=== PATIENT | female | born 1980 ===

== ENCOUNTER 2023-12-04 12:50 | Outpatient (AMB) | payer OTHER, SELFPAY ==
[2023-12-04 13:11] VITALS: BMI 30.9
--- NOTE | 2023-12-04 13:11 | A.OFFVIS_ITS ---
VS Expanded 12/04/23 13:11 12/10/23 14:06 Height 5 ft 5 ft Weight 158 lb 1.143 oz 158 lb BMI 30.9 30.9 Intake Visit Reasons: Overweight/LVM Nutrition Presentation Details: Pt presents for MNT for overweight/obesity. Pt was referred by PCP, Dr. Valencia Pt has elevated cholesterol, reports working on trying to reduce portions and meal planning Typically B: coffee black green tea L 1pm shrimp and salad 2 potatoes and chicken breast, water D: wraps or salmon or salad no eating after 7 pm , reports success with this modification and now used to the routine physical activity: sedentary ETOH/SMoking: --- meds: zyrtec 10 m/gl, atarax 25 mg twice/day , melatonin 10 mg/d BS Monitoring Most Recent Diabetes Results: No Data to Display ZWB-Gwixnlu-RyLazaro Equation Height: 5 ft Weight: 158 lb Resting Metabolic Rate: 1286.06 Calculated Activity Level: Sedentary Calories Needed to Maintain Weight: 1543.27 Diagnosis Nutrition problem #1: food nutri know defi As related to (etiology) #1: diagnosis As evidenced by (sign/symptom) #1: high BMI (30.9 (12/2023)) and knowledge deficit of diet Monitoring/Goals Nutrition problem monitoring: level of knowledge/skill, total PRO intake and weight Nutrition goal/outcome: wt loss 5lbs in 2 months Outcome progress: verbalized understanding Learning/Education Readiness to learn: good Stages of change: preparation Assessment & Plan Assessment & Plan (1) Obesity (BMI 30.0-34.9): Code(s): E66.9 - Obesity, unspecified Category: Medical Plan: Wt: 72 Kg ( 12/2023 ) Est kcal needs as per MSJ: 2534-8427 (40% carb, 30% protein/fat) Est fluid needs as per 25-30 ml/d: 2200 Est prot per day as per 1 g/kg bw: 72 Recommend fiber intake : 8-10 g per day and gradually increase to 25-28 g per day for women and 35-38 g for men or as tolerated Recommend sodium intake per day : less than 2000 mg Educated patient on: ( R = reviewed V = verbalizes understanding N/R = needs review N/A = not applicable * Food sources of carbohydrate, adequate serving sizes and its role in various health conditions: R * Differences between complex carbohydrates a simple carbohydrates, role of fiber in diet: R * Lean protein sources of foods: R * Differences between types of fats and role in diet (mono on saturated fat fatty acids, saturated fatty acids, trans fats): R V N/R * Food sources of sodium in salt and healthy modifications for heart health in kidney health: R V R/V * Vitamins and minerals: R V N/R * Healthy plate method concept: R * Physical activity: Benefits a precaution: R V N/R * Patient Instructions: Practice mindful eating Work on reducing total carb to 45-60 g at meal following healthy plate method - measure food portions Keep hydrated by choosing water/herb/fruit infused water , low sugar/no sugar beverages Coding Level of Care Code Nutr Indiv Intake (76814) Diagnoses Obesity (BMI 30.0-34.9) E66.9 Time Spent (min) 30
[2023-12-10 14:06] VITALS: BMI 30.9
== END 2023-12-04 13:48 | disposition home or self-care (01) ==
PROVIDERS: PCP Student in an Organized Health Care Education/Training Program; Visit Provider Dietitian, Registered
DX: E66.9 Obesity, unspecified (principal)

== ENCOUNTER → 2023-12-04 12:50 | Outpatient (BNVA) | payer OTHER, SELFPAY | PROVIDERS: PCP Student in an Organized Health Care Education/Training Program; Visit Provider Dietitian, Registered | DX: E66.9 Obesity, unspecified (principal); E78.00 Pure hypercholesterolemia, unspecified; Z68.30 Body mass index [BMI] 30.0-30.9, adult; Z71.3 Dietary counseling and surveillance | CPT/HCPCS: 97802 ==

== ENCOUNTER 2024-01-08 12:57 | Outpatient (AMB) | payer OTHER, SELFPAY ==
[2024-01-08 13:16] VITALS: BMI 30.5
--- NOTE | 2024-01-08 13:16 | A.OFFVIS_ITS ---
VS Expanded 01/08/24 13:16 Height 5 ft Weight 156 lb 4.924 oz BMI 30.5 Intake Visit Reasons: OBESITY/ LVM Nutrition Presentation Details: Pt presents for MNT f/u for obesity Pt reports well, working on meal planning/healthier options. working on eating slowly, finds herself eating too fast BS Monitoring Most Recent Diabetes Results: No Data to Display Assessment & Plan Assessment & Plan (1) Obesity (BMI 30.0-34.9): Code(s): E66.9 - Obesity, unspecified Category: Medical Plan: Wt: 72 Kg ( 12/2023 ), 71 kg (01/2024) Est kcal needs as per MSJ: 8301-1167 (40% carb, 30% protein/fat) Est fluid needs as per 25-30 ml/d: 2200 Est prot per day as per 1 g/kg bw: 72 Recommend fiber intake : 8-10 g per day and gradually increase to 25-28 g per day for women and 35-38 g for men or as tolerated Recommend sodium intake per day : less than 2000 mg Educated patient on: ( R = reviewed V = verbalizes understanding N/R = needs review N/A = not applicable * Food sources of carbohydrate, adequate serving sizes and its role in various health conditions: R * Differences between complex carbohydrates a simple carbohydrates, role of fiber in diet: R * Lean protein sources of foods: R * Differences between types of fats and role in diet (mono on saturated fat fatty acids, saturated fatty acids, trans fats): R V N/R * Food sources of sodium in salt and healthy modifications for heart health in kidney health: R V R/V * Vitamins and minerals: R V N/R * Healthy plate method concept: R * mindful eating: R * Calories: R * Physical activity: Benefits a precaution: R V N/R * Patient Instructions: limit calories from snacks to 200 calories per day Coding Level of Care Code Nutr Indiv Subseq (31162) Diagnoses Obesity (BMI 30.0-34.9) E66.9 Time Spent (min) 30
== END 2024-01-08 13:53 | disposition home or self-care (01) ==
PROVIDERS: PCP Student in an Organized Health Care Education/Training Program; Visit Provider Dietitian, Registered
DX: E66.9 Obesity, unspecified (principal)

== ENCOUNTER → 2024-01-08 12:57 | Outpatient (BNVA) | payer OTHER, SELFPAY | PROVIDERS: PCP Student in an Organized Health Care Education/Training Program; Visit Provider Dietitian, Registered | DX: E66.9 Obesity, unspecified (principal); Z71.3 Dietary counseling and surveillance; Z68.30 Body mass index [BMI] 30.0-30.9, adult | CPT/HCPCS: 97803 ==

== ENCOUNTER 2024-03-11 13:14 | Outpatient (AMB) | payer OTHER, SELFPAY ==
--- NOTE | 2024-03-11 13:26 | A.OFFVIS_ITS ---
VS Expanded 03/11/24 13:27 Height 5 ft Weight 160 lb 0.889 oz BMI 31.3 Intake Visit Reasons: Obesity/LVM Nutrition Presentation Details: Pt presents for MNT f/u for obesity Pt was on vacation and is restarting to work on diet modifications physical activity walking 30 minutes 3-4 x/wks BS Monitoring Most Recent Diabetes Results: No Data to Display Assessment & Plan Assessment & Plan (1) Obesity (BMI 30.0-34.9): Code(s): E66.9 - Obesity, unspecified Category: Medical Plan: Wt: 72 Kg ( 12/2023 ), 71 kg (01/2024), 73 kg (03/2024) Est kcal needs as per MSJ: 9532-9416 (40% carb, 30% pro tein/fat) Est fluid needs as per 25-30 ml/d: 2200 Est prot per day as per 1 g/kg bw: 72 Recommend fiber intake : 8-10 g per day and gradually increase to 25-28 g per day for women and 35-38 g for men or as tolerated Recommend sodium intake per day : less than 2000 mg Educated patient on: ( R = reviewed V = verbalizes understanding N/R = needs review N/A = not applicable * Food sources of carbohydrate, adequate serving sizes and its role in various health conditions: R * Differences between complex carbohydrates a simple carbohydrates, role of fiber in diet: R * Lean protein sources of foods: R * Differences between types of fats and role in diet (mono on saturated fat fatty acids, saturated fatty acids, trans fats): R V N/R * Food sources of sodium in salt and healthy modifications for heart health in kidney health: R V R/V * Vitamins and minerals: R V N/R * Healthy plate method concept: R * mindful eating: R * Calories: R * Physical activity: Benefits a precaution: R * Patient Instructions: Engage in physical activity 30-45 minutes ( change the speed of walking) keep hydrated by having water Have a fruit in place of pastries and similar foods EAT SLOWLY Coding Level of Care Code Nutr Indiv Subseq (79966) Diagnoses Obesity (BMI 30.0-34.9) E66.9 Time Spent (min) 30
[2024-03-11 13:27] VITALS: BMI 31.3
== END 2024-03-11 13:53 | disposition home or self-care (01) ==
PROVIDERS: PCP Student in an Organized Health Care Education/Training Program; Visit Provider Dietitian, Registered
DX: E66.9 Obesity, unspecified (principal)

== ENCOUNTER → 2024-03-11 13:14 | Outpatient (BNVA) | payer OTHER, SELFPAY | PROVIDERS: PCP Student in an Organized Health Care Education/Training Program; Visit Provider Dietitian, Registered | DX: E66.9 Obesity, unspecified (principal); Z68.31 Body mass index [BMI] 31.0-31.9, adult | CPT/HCPCS: 97803 ==

== ENCOUNTER 2024-07-23 13:26 | Outpatient (AMB) | payer OTHER, SELFPAY ==
--- NOTE | 2024-07-23 13:30 | A.OFFVIS_ITS ---
VS Expanded 07/23/24 13:36 Height 5 ft Weight 161 lb BMI 31.4 Intake Visit Reasons: obesity Nutrition Presentation Details: Pt presents for MNT f/u for obesity Pt reports doing well, working on diet modifications, mindful eating. Has a treadmill which started utilizing, feeling motivated. BS Monitoring Most Recent Diabetes Results: No Data to Display Assessment & Plan Assessment & Plan (1) Obesity (BMI 30.0-34.9): Code(s): E66.9 - Obesity, unspecified Category: Medical Plan: Wt: 72 Kg ( 12/2023 ), 71 kg (01/2024), 73 kg (03/2024),07/2024 Est kcal needs as per MSJ: 8200-2706 (40% carb, 30% protein/fat) Est fluid needs as per 25-30 ml/d: 2200 Est prot per day as per 1 g/kg bw: 72 Recommend fiber intake : 8-10 g per day and gradually increase to 25-28 g per day for women and 35-38 g for men or as tolerated Recommend sodium intake per day : less than 2000 mg Educated patient on: ( R = reviewed V = verbalizes understanding N/R = needs review N/A = not applicable * Food sources of carbohydrate, adequate serving sizes and its role in various health conditions: R * Differences between complex carbohydrates a simple carbohydrates, role of fiber in diet: R * Lean protein sources of foods: R * Differences between types of fats and role in diet (mono on saturated fat fatty acids, saturated fatty acids, trans fats): R * Food sources of sodium in salt and healthy modifications for heart health in kidney health: R V R/V * Vitamins and minerals: R V N/R * Healthy plate method concept: R * mindful eating: R * Calories: R * Physical activity: Benefits a precaution: R * Patient Instructions: Continue working on choosing fiber rich foods (whole grains, fruits, vegetables) practice mindful eating continue engaging in physical activity goal 30 minutes daily keep hydrated by having water with meals/snacks Coding Level of Care Code Nutr Indiv Subseq (33715) Diagnoses Obesity (BMI 30.0-34.9) E66.9 Time Spent (min) 30
[2024-07-23 13:36] VITALS: BMI 31.4
== END 2024-07-23 15:27 | disposition home or self-care (01) ==
PROVIDERS: PCP Student in an Organized Health Care Education/Training Program; Visit Provider Dietitian, Registered
DX: E66.9 Obesity, unspecified (principal)

== ENCOUNTER → 2024-07-23 13:26 | Outpatient (BNVA) | payer OTHER, SELFPAY | PROVIDERS: PCP Student in an Organized Health Care Education/Training Program; Visit Provider Dietitian, Registered | DX: E66.9 Obesity, unspecified (principal); Z68.31 Body mass index [BMI] 31.0-31.9, adult | CPT/HCPCS: 97803 ==